=== PATIENT | female | born 1980 | race African-American/Black ===

== ENCOUNTER 2019-08-14 21:26 | Emergency (ER) | payer OTHER ==
[~2019-08-14] VITALS: Ht 147.3 cm; Wt 83.9 kg
[2019-08-14 21:32] VITALS: BP 124/95
[2019-08-14] MEDS ORDERED: IBU800 MG PO (21:40)
[2019-08-14] MEDS ORDERED: PROMETHAZINE D PO (21:53)
[2019-08-14] MEDS ORDERED: PROMETH-CODEIN 65 ML PO (22:11)
== END 2019-08-14 22:17 | disposition home or self-care (01) ==
LOC: ER 21:26
DX: J40 Bronchitis, not specified as acute or chronic (principal); E11.9 Type 2 diabetes mellitus without complications; G47.30 Sleep apnea, unspecified; F17.210 Nicotine dependence, cigarettes, uncomplicated

== ENCOUNTER 2019-11-02 23:12 | Emergency (ER) | payer OTHER ==
[~2019-11-02] VITALS: Ht 144.8 cm; Wt 77.1 kg
[~2019-11-02 23:12] MED LIST: IBU800 MG PO; PROMETH-CODEIN 65 ML PO; PROMETHAZINE D PO
[2019-11-02 23:23] VITALS: BP 121/81
[2019-11-02] MEDS ORDERED: CELEXA 20 MG TA20 MG PO (23:30)
[2019-11-02] MEDS ORDERED: ADVAIR 250-501 EACH INH (23:53)
[2019-11-02] MEDS ORDERED: PROAIR HFA8.5 GM INH (23:53)
[2019-11-03] MEDS ORDERED: PROMETH-CODEIN 65 ML PO (00:09)
== END 2019-11-03 00:26 | disposition home or self-care (01) ==
LOC: ER 23:12
DX: J06.9 Acute upper respiratory infection, unspecified (principal); Z03.818 Encounter for observation for suspected exposure to other biological agents ruled out; E11.9 Type 2 diabetes mellitus without complications; F17.210 Nicotine dependence, cigarettes, uncomplicated; Z79.899 Other long term (current) drug therapy

== ENCOUNTER 2019-11-25 14:22 | Emergency (ER) | payer OTHER ==
[~2019-11-25] VITALS: Ht 147.3 cm; Wt 77.1 kg
[~2019-11-25 14:22] MED LIST changes: +ADVAIR 250-501 EACH INH; +CELEXA 20 MG TA20 MG PO; +PROAIR HFA8.5 GM INH
[2019-11-25] MEDS ORDERED: PREDNISONE 20 M20 MG PO (15:01)
[2019-11-25] MEDS ORDERED: PROMETH-CODEIN 65 ML PO (15:01)
[2019-11-25 16:05] VITALS: BP 112/67
== END 2019-11-25 16:54 | disposition home or self-care (01) ==
LOC: ER 14:22
DX: J42 Unspecified chronic bronchitis (principal); E11.9 Type 2 diabetes mellitus without complications; F17.210 Nicotine dependence, cigarettes, uncomplicated; Z79.899 Other long term (current) drug therapy; Z71.6 Tobacco abuse counseling

== ENCOUNTER 2019-12-26 23:40 | Emergency (ER) | payer OTHER ==
[~2019-12-26] VITALS: Ht 147.3 cm; Wt 74.8 kg
[~2019-12-26 23:40] MED LIST changes: +PREDNISONE 20 M20 MG PO
[2019-12-27 01:32] VITALS: BP 132/88
[2019-12-27] MEDS ORDERED: PROMETH-CODEIN 65 ML PO (01:40)
== END 2019-12-27 01:48 | disposition home or self-care (01) ==
LOC: ER 23:40
DX: R05 Cough (principal); Z20.828 Contact with and (suspected) exposure to other viral communicable diseases; J02.9 Acute pharyngitis, unspecified; E11.9 Type 2 diabetes mellitus without complications; F17.210 Nicotine dependence, cigarettes, uncomplicated; Z79.899 Other long term (current) drug therapy

== ENCOUNTER 2020-01-09 21:37 | Emergency (ER) | payer OTHER ==
[~2020-01-09] VITALS: Ht 147.3 cm; Wt 77.1 kg
[2020-01-10 00:15] VITALS: BP 111/64
[2020-01-10] MEDS ORDERED: MUCINEX DM ER1 EACH PO (01:26)
[2020-01-10] MEDS ORDERED: PROMETHAZINE-C473 ML PO (01:26)
== END 2020-01-10 01:43 | disposition home or self-care (01) ==
LOC: ER 21:37
DX: J06.9 Acute upper respiratory infection, unspecified (principal); B97.89 Other viral agents as the cause of diseases classified elsewhere; E11.9 Type 2 diabetes mellitus without complications; F17.210 Nicotine dependence, cigarettes, uncomplicated; Z79.899 Other long term (current) drug therapy

== ENCOUNTER 2020-02-04 02:45 | Emergency (ER) | payer OTHER ==
[~2020-02-04] VITALS: Ht 147.3 cm; Wt 73.9 kg
[~2020-02-04 02:45] MED LIST changes: +MUCINEX DM ER1 EACH PO; +PROMETHAZINE-C473 ML PO
[2020-02-04 03:00] VITALS: BP 139/106
[2020-02-04] MEDS ORDERED: METFORMIN HCL500 M3 PO (03:03)
--- NOTE | 2020-02-06 08:11 | EKG ---
[facility] [place] [address] ELECTROCARDIOGRAM REPORT Name: DIANDRA SANTIAGO Room #: DEP [facility].#: [id number] Admission: 02/04/20 Attend Phys: Discharge: 02/04/20 Date of : 78 Report #: [id number] THIS REPORT FOR: cc: Irene Caldwell MD, Karla L. 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
== END 2020-02-04 03:42 | disposition left against medical advice (07) ==
LOC: ER 02:45
DX: R00.0 Tachycardia, unspecified (principal); Z76.5 Malingerer [conscious simulation]; E11.9 Type 2 diabetes mellitus without complications; F17.210 Nicotine dependence, cigarettes, uncomplicated; Z90.710 Acquired absence of both cervix and uterus; Z79.899 Other long term (current) drug therapy

== ENCOUNTER 2020-02-13 00:39 | Emergency (ER) | payer OTHER ==
[~2020-02-13] VITALS: Ht 147.3 cm; Wt 72.6 kg
[~2020-02-13 00:39] MED LIST changes: +METFORMIN HCL500 M3 PO
[2020-02-13] MEDS ORDERED: GUAIFEN-CODEINE10 ML PO (01:02)
[2020-02-13 01:17] VITALS: BP 118/101
== END 2020-02-13 01:18 | disposition home or self-care (01) ==
LOC: ER 00:39
DX: R05 Cough (principal); Z20.828 Contact with and (suspected) exposure to other viral communicable diseases; E11.9 Type 2 diabetes mellitus without complications; F41.9 Anxiety disorder, unspecified; F17.210 Nicotine dependence, cigarettes, uncomplicated; Z90.711 Acquired absence of uterus with remaining cervical stump; Z79.899 Other long term (current) drug therapy

== ENCOUNTER 2020-04-03 13:05 | Emergency (ER) | payer OTHER ==
[~2020-04-03] VITALS: Ht 147.3 cm; Wt 71.7 kg
[~2020-04-03 13:05] MED LIST changes: +GUAIFEN-CODEINE10 ML PO
[2020-04-03 13:06] VITALS: BP 126/79
[2020-04-03] MEDS ORDERED: PREDNISONE 20 M20 MG PO (14:22)
[2020-04-03] MEDS ORDERED: VENTOLIN HFA 1818 GM INH (14:22)
== END 2020-04-03 15:10 | disposition home or self-care (01) ==
LOC: ER 13:05
DX: J98.8 Other specified respiratory disorders (principal); B97.89 Other viral agents as the cause of diseases classified elsewhere; F17.210 Nicotine dependence, cigarettes, uncomplicated; E11.9 Type 2 diabetes mellitus without complications; Z79.899 Other long term (current) drug therapy; Z90.710 Acquired absence of both cervix and uterus

== ENCOUNTER 2020-05-20 17:01 | Emergency (ER) | payer OTHER ==
[~2020-05-20] VITALS: Ht 147.3 cm; Wt 66.7 kg
[~2020-05-20 17:01] MED LIST changes: +VENTOLIN HFA 1818 GM INH
[2020-05-20 17:02] VITALS: BP 135/82
[2020-05-20] MEDS ORDERED: TESSALON PERLE100 MG PO (17:44)
== END 2020-05-20 18:32 | disposition home or self-care (01) ==
LOC: ER 17:01
DX: J06.9 Acute upper respiratory infection, unspecified (principal); R05 Cough; E11.9 Type 2 diabetes mellitus without complications; F17.210 Nicotine dependence, cigarettes, uncomplicated; Z90.710 Acquired absence of both cervix and uterus; Z79.899 Other long term (current) drug therapy; Z20.828 Contact with and (suspected) exposure to other viral communicable diseases

== ENCOUNTER 2020-12-15 12:06 | Emergency (ER) | payer OTHER ==
[~2020-12-15] VITALS: Ht 147.3 cm; Wt 63.5 kg
[~2020-12-15 12:06] MED LIST changes: +TESSALON PERLE100 MG PO
[2020-12-15 12:12] VITALS: BP 128/92
[2020-12-15] MEDS ORDERED: PHENERGAN 25 MG25 M1 PO (13:03)
[2020-12-15] MEDS ORDERED: TUSSIN DM MAX118 ML PO (13:03)
== END 2020-12-15 13:03 | disposition home or self-care (01) ==
LOC: ER 12:06
DX: R05 Cough (principal); Z76.0 Encounter for issue of repeat prescription; J44.9 Chronic obstructive pulmonary disease, unspecified; E11.9 Type 2 diabetes mellitus without complications; F41.9 Anxiety disorder, unspecified; F17.210 Nicotine dependence, cigarettes, uncomplicated; Z90.711 Acquired absence of uterus with remaining cervical stump; Z79.899 Other long term (current) drug therapy